=== PATIENT | female | born 1955 | race Caucasian/White ===

== ENCOUNTER 2017-03-06 03:22 | Inpatient (IN) | payer MEDICAID ==
[~2017-03-06] VITALS: Ht 157.5 cm; Wt 70.5 kg
[2017-03-06] MEDS ORDERED: NITR100C PO (03:34)
[2017-03-06] MEDS ORDERED: LISI-662 PO (03:34)
[2017-03-06] MEDS ORDERED: ONDA4 PO (03:34)
[2017-03-06] MEDS ORDERED: PHEN-853 PO (03:34)
[2017-03-06] MEDS ORDERED: METF500T4 PO (03:34)
[2017-03-06 03:42] LABS: GLUCOSE COMMENT 1 Doctor Notified; GLUCOSE,POINT OF CARE 120 MG/DL (70-110)
[2017-03-06] MEDS ORDERED: SODIUM CHLORIDE 0.9% 1,000 ML IV ONE (03:45)
[2017-03-06 04:24] LABS: BASOPHILS % (AUTO) 0.3 % (0.0-2.0); EOSINOPHILS % (AUTO) 0.3 % (1.0-6.0); HEMATOCRIT 39.6 % (36-46); HEMOGLOBIN 13.2 g/dL (12.0-16.0); LYMPHOCYTES % (AUTO) 24.1 % (22.0-44.0); MEAN CORPUSCULAR HEMOGLOBIN 30.2 pg (26.0-34.0); MEAN CORPUSCULAR HGB CONC 33.2 G/dL (31.0-37.0); MEAN CORPUSCULAR VOLUME 91 fL (80-100); MONOCYTES # (AUTO) 0.8 K/uL (0.1-1.0); MONOCYTES % (AUTO) 6.3 % (2.0-9.0); NEUTROPHILS # (AUTO) 8.5 K/uL (1.8-7.7); PLATELET COUNT (AUTO) 165 K/uL (150-450); RED BLOOD CELL COUNT(AUTO) 4.35 MIL/uL (4.00-5.20); RED CELL DISTRIBUTION WIDTH 12.7 % (11.5-14.5); WHITE BLOOD COUNT (AUTO) 12.4 K/uL (4.5-11.0)
[2017-03-06 04:29] LABS: CALCIUM, TOTAL 8.8 mg/dL (8.8-10.5); CREATININE 1.25 mg/dL (0.60-1.30); POTASSIUM 3.7 mmol/L (3.5-5.1)
[2017-03-06] MEDS ORDERED: ONDANSETRON HCL 4 MG/2 ML VIAL IVP ONE (04:30)
[2017-03-06] MEDS ORDERED: MORPHINE SULFATE 4 MG/ML SYRINGE IVP ONE (04:30)
[2017-03-06 04:33] LABS: GLUCOSE, URINE (UA) NEGATIVE (NEGATIVE); KETONES,URINE 15 mg/dL (NEGATIVE); LEUKOCYTE ESTERASE ,URINE SMALL (NEGATIVE); OCCULT BLOOD,URINE MODERATE (NEGATIVE); PROTEIN,URINE POS 1+ (NEGATIVE)
[2017-03-06 04:35] LABS: ALBUMIN 4.1 g/dL (3.4-5.0); BILIRUBIN,TOTAL 1.3 mg/dL (0.1-1.0); TOTAL PROTEIN, SERUM 7.9 g/dL (6.4-8.2)
[2017-03-06 04:37] LABS: ADD UA MICROSCOPIC YES; APPEARANCE,URINE HAZY (CLEAR)
[2017-03-06 04:53] LABS: SQUAMOUS EPITHELIAL CELL,UR Rare /LPF (None Seen)
[2017-03-06] MEDS ORDERED: CIPROFLOXACIN 400 MG/D5% WATER 200 ML IV ONE (05:30)
[2017-03-06] MEDS ORDERED: KETOROLAC TROMETHAMINE 30 MG/ML VIAL IVP ONE (05:30)
[2017-03-06 06:27] VITALS: BP 141/61
[2017-03-06 08:03] VITALS: BP 122/69
[2017-03-06] MEDS ORDERED: 0.9% SODIUM CHLORIDE 10 ML SYRINGE IVP PRN (09:30)
[2017-03-06] MEDS ORDERED: MORPHINE SULFATE 2 MG/ML SYRINGE IVP PRN (09:30)
[2017-03-06] MEDS ORDERED: ONDANSETRON HCL 4 MG/2 ML VIAL IVP PRN (09:30)
[2017-03-06] MEDS: LISINOPRIL 20 MG TABLET PO SCH (10:23)
[2017-03-06] MEDS: PANTOPRAZOLE SODIUM 40 MG/VIAL IVP SCH (10:23)
[2017-03-06] MEDS: DOCUSATE SODIUM 100 MG CAPSULE PO SCH ×2 (10:23→20:28)
[2017-03-06] MEDS: SODIUM CHLORIDE 0.9% 1,000 ML IV SCH ×2 (10:24→21:24)
[2017-03-06] MEDS ORDERED: DEXTROSE 50%-WATER 25 GM/50 ML SYRINGE IVP PRN (11:45)
[2017-03-06 11:47] LABS: GLUCOSE,POINT OF CARE 155 MG/DL (70-110)
[2017-03-06] MEDS: INSULIN ASPART 100 UNITS/ML SQ PRN ×2 (11:55→20:28)
[2017-03-06 12:43] VITALS: BP 143/67
[2017-03-06 16:09] VITALS: BP 133/60
[2017-03-06] MEDS: CIPROFLOXACIN 400 MG/D5% WATER 200 ML IV SCH (16:57)
[2017-03-06] MEDS: OxyCODONE HCL/ACETAMINOPHEN 5-325 MG TABLET PO PRN (17:15)
[2017-03-06 17:22] LABS: GLUCOSE,POINT OF CARE 117 MG/DL (70-110)
[2017-03-06 20:10] VITALS: BP 130/66
[2017-03-06 23:45] VITALS: BP 116/62
[2017-03-07] MEDS: OxyCODONE HCL/ACETAMINOPHEN 5-325 MG TABLET PO PRN ×3 (01:34→16:32)
[2017-03-07 03:30] VITALS: BP 121/61
[2017-03-07 05:57] LABS: GLUCOSE,POINT OF CARE 154 MG/DL (70-110)
[2017-03-07 06:07] LABS: BASOPHILS % (AUTO) 0.4 % (0.0-2.0); EOSINOPHILS % (AUTO) 0.4 % (1.0-6.0); HEMATOCRIT 31.5 % (36-46); HEMOGLOBIN 10.4 g/dL (12.0-16.0); LYMPHOCYTES # (AUTO) 2.1 K/uL (1.0-4.8); LYMPHOCYTES % (AUTO) 20.4 % (22.0-44.0); MEAN CORPUSCULAR HEMOGLOBIN 30.5 pg (26.0-34.0); MEAN CORPUSCULAR HGB CONC 33.1 G/dL (31.0-37.0); MEAN CORPUSCULAR VOLUME 92 fL (80-100); MONOCYTES # (AUTO) 0.6 K/uL (0.1-1.0); MONOCYTES % (AUTO) 6.4 % (2.0-9.0); NEUTROPHILS # (AUTO) 7.3 K/uL (1.8-7.7); NEUTROPHILS % (AUTO) 72.4 % (40.0-70.0); PLATELET COUNT (AUTO) 110 K/uL (150-450); RED BLOOD CELL COUNT(AUTO) 3.41 MIL/uL (4.00-5.20); RED CELL DISTRIBUTION WIDTH 13.5 % (11.5-14.5); WHITE BLOOD COUNT (AUTO) 10.1 K/uL (4.5-11.0)
[2017-03-07 06:15] LABS: CALCIUM, TOTAL 7.2 mg/dL (8.8-10.5); CREATININE 1.15 mg/dL (0.60-1.30); POTASSIUM 4.1 mmol/L (3.5-5.1)
[2017-03-07] MEDS: CIPROFLOXACIN 400 MG/D5% WATER 200 ML IV SCH ×2 (06:22→17:31)
[2017-03-07 06:32] LABS: GLUCOSE,POINT OF CARE 83 MG/DL (70-110)
[2017-03-07 07:22] VITALS: BP 122/65
[2017-03-07] MEDS: LISINOPRIL 20 MG TABLET PO SCH (07:53)
[2017-03-07] MEDS: PANTOPRAZOLE SODIUM 40 MG/VIAL IVP SCH (07:53)
[2017-03-07] MEDS: DOCUSATE SODIUM 100 MG CAPSULE PO SCH ×2 (07:54→19:39)
[2017-03-07] MEDS: ONDANSETRON HCL 4 MG TABLET PO PRN ×2 (08:03→19:39)
[2017-03-07] MEDS: SODIUM CHLORIDE 0.9% 1,000 ML IV SCH ×2 (08:03→17:31)
[2017-03-07 11:39] VITALS: BP 133/67
[2017-03-07 11:57] LABS: GLUCOSE,POINT OF CARE 127 MG/DL (70-110)
[2017-03-07 15:17] VITALS: BP 136/61
[2017-03-07 17:42] LABS: GLUCOSE COMMENT 1 Received Meds; GLUCOSE,POINT OF CARE 145 MG/DL (70-110)
[2017-03-07] MEDS: INSULIN ASPART 100 UNITS/ML SQ PRN (17:43)
[2017-03-07 20:29] VITALS: BP 135/68
[2017-03-08] VITALS (7 sets, daily range): BP systolic 108–147; BP diastolic 64–74
[2017-03-08] MEDS: OxyCODONE HCL/ACETAMINOPHEN 5-325 MG TABLET PO PRN (00:23)
[2017-03-08 01:37] LABS: GLUCOSE COMMENT 1 Received Meds; GLUCOSE,POINT OF CARE 114 MG/DL (70-110)
[2017-03-08] MEDS: CIPROFLOXACIN 400 MG/D5% WATER 200 ML IV SCH ×2 (05:10→18:00)
[2017-03-08] MEDS: SODIUM CHLORIDE 0.9% 1,000 ML IV SCH ×2 (05:16→19:45)
[2017-03-08 06:57] LABS: GLUCOSE COMMENT 1 Received Meds; GLUCOSE,POINT OF CARE 100 MG/DL (70-110)
[2017-03-08] MEDS: DOCUSATE SODIUM 100 MG CAPSULE PO SCH ×2 (08:42→21:00)
[2017-03-08] MEDS: PANTOPRAZOLE SODIUM 40 MG/VIAL IVP SCH (08:42)
[2017-03-08] MEDS: LISINOPRIL 20 MG TABLET PO SCH (08:42)
[2017-03-08] MEDS ORDERED: MORPHINE SULFATE 2 MG/ML SYRINGE IVP ONE (11:45)
[2017-03-08] MEDS: INSULIN ASPART 100 UNITS/ML SQ PRN ×2 (11:53→18:33)
[2017-03-08] MEDS ORDERED: ROCURONIUM BROMIDE 10 MG/ML 5 ML VIAL IVP ONE (12:00)
[2017-03-08] MEDS ORDERED: ONDANSETRON HCL 4 MG/2 ML VIAL IVP ONE (12:00)
[2017-03-08] MEDS ORDERED: FentaNYL CITRATE-PF 100 MCG/2 ML VIAL IVP ONE (12:00)
[2017-03-08] MEDS ORDERED: GLYCOPYRROLATE 0.2 MG/ML VIAL IM ONE (12:00)
[2017-03-08] MEDS ORDERED: PROPOFOL 1% 20 ML VIAL IVP ONE (12:00)
[2017-03-08] MEDS ORDERED: LIDOCAINE HCL/PF 2% 5 ML VIAL INJ ONE (12:00)
[2017-03-08] MEDS ORDERED: NEOSTIGMINE METHYLSULFATE 1 MG/ML 10 ML VIAL IVP ONE (12:00)
[2017-03-08] MEDS ORDERED: MIDAZOLAM HCL 2 MG/2 ML VIAL IVP ONE (12:00)
[2017-03-08 12:12] LABS: GLUCOSE,POINT OF CARE 100 MG/DL (70-110)
[2017-03-08] MEDS ORDERED: HYDROmorphone 2 MG/ML SYRINGE IVP PRN (14:30)
[2017-03-08] MEDS ORDERED: FentaNYL CITRATE-PF 100 MCG/2 ML VIAL IVP PRN (14:30)
[2017-03-08] MEDS ORDERED: MEPERIDINE-PF 25 MG/ML SYRINGE IVP PRN (14:30)
[2017-03-08] MEDS ORDERED: IOHEXOL 240 MG/ML 20 ML VIAL ONE ×2 (14:35)
[2017-03-08] MEDS ORDERED: RINGERS SOLUTION,LACTATED 1,000 ML IV ONE (14:35)
[2017-03-08] MEDS ORDERED: SODIUM CL IRRIG SOLN BAG 3,000 ML IRRIG ONE (14:35)
[2017-03-08 18:57] LABS: GLUCOSE,POINT OF CARE 108 MG/DL (70-110)
[2017-03-08] MEDS ORDERED: OXYGEN THERAPY IH SCH (20:00)
[2017-03-08 22:17] LABS: GLUCOSE COMMENT 1 Received Meds; GLUCOSE,POINT OF CARE 137 MG/DL (70-110)
[2017-03-09 03:57] VITALS: BP 143/67
[2017-03-09] MEDS: CIPROFLOXACIN 400 MG/D5% WATER 200 ML IV SCH (05:06)
[2017-03-09 05:27] LABS: GLUCOSE COMMENT 1 Received Meds; GLUCOSE,POINT OF CARE 112 MG/DL (70-110)
[2017-03-09 07:19] VITALS: BP 145/70
[2017-03-09] MEDS: PANTOPRAZOLE SODIUM 40 MG/VIAL IVP SCH (08:14)
[2017-03-09] MEDS: DOCUSATE SODIUM 100 MG CAPSULE PO SCH (08:14)
[2017-03-09] MEDS: LISINOPRIL 20 MG TABLET PO SCH (08:14)
[2017-03-09] MEDS: SODIUM CHLORIDE 0.9% 1,000 ML IV SCH (08:15)
[2017-03-09] MEDS: INSULIN ASPART 100 UNITS/ML SQ PRN (11:20)
[2017-03-09 11:32] LABS: GLUCOSE COMMENT 1 Received Meds; GLUCOSE,POINT OF CARE 172 MG/DL (70-110)
[2017-03-09 11:39] VITALS: BP 129/64
== END 2017-03-09 13:28 | disposition home or self-care (01) | DRG 465 ==
LOC: EMS 03:23 → 6N 05:27
PROVIDERS: ADMIT Internal Medicine; ATTEND Internal Medicine
PROC: BT1F1ZZ Fluoroscopy of Left Kidney, Ureter and Bladder using Low Osmolar Contrast (ICD-10-PCS; 2017-03-08)
PROC: 0T778DZ Dilation of Left Ureter with Intraluminal Device, Via Natural or Artificial Opening Endoscopic (ICD-10-PCS; principal; 2017-03-08 13:00)
DX: N13.2 Hydronephrosis with renal and ureteral calculous obstruction (principal); K76.0 Fatty (change of) liver, not elsewhere classified; N39.0 Urinary tract infection, site not specified; I10 Essential (primary) hypertension; Z87.440 Personal history of urinary (tract) infections; E11.9 Type 2 diabetes mellitus without complications; Z90.49 Acquired absence of other specified parts of digestive tract; Z90.710 Acquired absence of both cervix and uterus; Z79.899 Other long term (current) drug therapy
CPT/HCPCS: 74176; 82962; 87086; 96365; 96375; 99285; C9113; J0744; J1885; J2250; J2270; J2405; J2704; J3010; J3490; J7030; J7120; Q0162; Q9966